=== PATIENT | female | born 1950 | race Hispanic/Latino ===

== ENCOUNTER → 2021-10-29 | Emergency (ER) | payer OTHER ==
[~2021-10-29] MED LIST: GABAPENTIN 300 MG CAP PO SCH; GLIMEPIRIDE4 MG; HYDROCHLOROTH12.5 MG; MYCOPHENOLATE500 MG; OMEPRAZOLE20 MG; PEPCID20 MG PO; PYRIDOSTIGMINE60 MG; TELMISARTAN-HC1 EACH
== END ==
LOC: ER 15:00
DX: M79.621 Pain in right upper arm (principal); B02.9 Zoster without complications
CPT/HCPCS: 99283

== ENCOUNTER 2022-03-09 15:52 | Emergency (ER) | payer OTHER ==
[~2022-03-09] VITALS: Ht 149.9 cm; Wt 77.1 kg
[~2022-03-09 15:52] MED LIST changes: -GABAPENTIN 300 MG CAP PO SCH
[2022-03-09] MEDS ORDERED: IBUPROFEN 600 MG TAB PO STA (17:14)
[2022-03-09] MEDS ORDERED: ACETAMINOPHEN-1 EAC4 PO (18:41)
[2022-03-09] MEDS ORDERED: HYDROCODONE/APAP 5MG-325MG TAB PO ONE (18:45)
[2022-03-09 18:55] VITALS: BP 139/75
== END 2022-03-09 19:20 | disposition home or self-care (01) ==
LOC: ER 17:11
DX: S42.294A Other nondisplaced fracture of upper end of right humerus, initial encounter for closed fracture (principal); W01.0XXA Fall on same level from slipping, tripping and stumbling without subsequent striking against object, initial encounter; Y93.01 Activity, walking, marching and hiking; Y92.89 Other specified places as the place of occurrence of the external cause; I10 Essential (primary) hypertension; E11.9 Type 2 diabetes mellitus without complications; G70.00 Myasthenia gravis without (acute) exacerbation
CPT/HCPCS: 99283